=== PATIENT | male | born 1990 | race American Indian/Alaskan Native ===

== ENCOUNTER 2017-08-15 16:31 | Emergency (ER) | payer OTHER ==
[2017-08-15 17:57] VITALS: RESP 18; TEMP 98; O2SAT 99
--- NOTE | 2017-08-15 18:03 | C.PDOC ---
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 Patient reports he was tossing garbage out when he suddenly felt his back "lock up" which caused him to bend down on one knee. Patient reports pain eased up a little since it happened, and states having similar symptoms 6 months ago. Patient denies headache, incontinence, nausea, weakness, numbness, saddle anesthesia, abdominal pain, sensory changes in B/L lower extremities. Time Seen by Provider: 08/15/17 17:41 Chief Complaint (Nursing): Back Pain History Per: Patient History/Exam Limitations: no limitations Onset/Duration Of Symptoms: Hrs Current Symptoms Are (Timing): Still Present Quality Of Discomfort: "Pain" Severity: Mild Previous Symptoms: Back Pain Associated Symptoms: None Exacerbating Factor(s): Movement Recent travel outside of the [place]: No Past Medical History Reviewed: Historical Data, Nursing Documentation, Vital Signs Vital Signs: Last Vital Signs Temp 98.0 F 08/15/17 18:26 Pulse 70 08/15/17 18:26 Resp 18 08/15/17 18:26 BP 126/84 08/15/17 18:26 Pulse Ox 99 08/17/17 12:51 - Medical History PMH: Back Problems Surgical History: No Surg Hx Family History: States: Unknown Family Hx - Social History Hx Alcohol Use: No Hx Substance Use: No - Immunization History Hx Tetanus Toxoid Vaccination: Yes Hx Influenza Vaccination: Yes Hx Pneumococcal Vaccination: No Review Of Systems Constitutional: Negative for: Fever, Chills Cardiovascular: Negative for: Chest Pain Respiratory: Negative for: Cough, Shortness of Breath Gastrointestinal: Negative for: Nausea, Vomiting, Abdominal Pain Genitourinary: Negative for: Incontinence Musculoskeletal: Positive for: Back Pain (Lower back) Skin: Negative for: Rash Neurological: Negative for: Weakness, Numbness Physical Exam - Physical Exam Appears: Non-toxic, No Acute Distress Skin: Normal Color, Warm, Dry Head: Atraumatic, Normacephalic Eye(s): bilateral: Normal Inspection, PERRL, EOMI Neck: Normal ROM, No Midline Cervical Tenderness, Supple Chest: Symmetrical, No Tenderness Cardiovascular: Rhythm Regular, No Murmur Respiratory: Normal Breath Sounds, No Rales, No Rhonchi, No Wheezing Gastrointestinal/Abdominal: Soft, No Tenderness Back: Normal Inspection, No Vertebral Tenderness, Paraspinal Tenderness (B/L ) Extremity: Normal ROM, No Deformity, No Swelling Pulses: Left Dorsalis Pedis: Normal, Right Dorsalis Pedis: Normal Neurological/Psych: Oriented x3, Normal Speech, Normal Cognition, Normal Motor, Normal Sensation Gait: Steady ED Course And Treatment O2 Sat by Pulse Oximetry: 99 (On RA) Pulse Ox Interpretation: Normal Medical Decision Making Medical Decision Making: Plan: * Motrin 600 mg PO given Disposition Counseled Patient/Family Regarding: Diagnosis, Need For Followup, Rx Given - Disposition Disposition: HOME/ ROUTINE Disposition Time: 18:10 Condition: STABLE Additional Instructions: Please avoid heavy lifting for a few days. Take ibuprofen with food as prescribed for pain. Take muscle relaxant as prescribed- do not drive, work or operate machinery when taking it. Follow up with your primary care doctor in a few days. Return to ER for any worse pain, numbness or tingling. Prescriptions: Cyclobenzaprine [Cyclobenzaprine HCl] 10 mg PO Q8 #9 tab Ibuprofen [Motrin] 600 mg PO TID #30 tab Instructions: Acute Low Back Pain (ED) Forms: General Discharge Instructions, [facility] (Italian), Work Excuse - Clinical Impression Clinical Impression: Lumbar sprain - PA / [employer] / Resident Statement MD/DO has reviewed & agrees with the documentation as recorded. - Scribe Statement The provider has reviewed the documentation as recorded by the Scribe Adryan Gomez All medical record entries made by the Scribe were at my direction and personally dictated by me. I have reviewed the chart and agree that the record accurately reflects my personal performance of the history, physical exam, medical decision making, and the department course for this patient. I have also personally directed, reviewed, and agree with the discharge instructions and disposition.
[2017-08-15 18:26] VITALS: BP 126/84; PULSE 70
== END 2017-08-15 18:27 | disposition home or self-care (01) ==
LOC: MERGE 16:31 → C.ER 16:31
DX: S33.5XXA Sprain of ligaments of lumbar spine, initial encounter (principal); X58.XXXA Exposure to other specified factors, initial encounter